=== PATIENT | female | born 1975 | race Caucasian/White ===

== ENCOUNTER 2018-06-21 08:07 | Day surgery (SDC) | payer OTHER ==
[2018-06-21] MEDS ORDERED: CEFAZOLIN/SWI 1gm 1 GM/10 ML SYR ONE (08:29)
[2018-06-21] MEDS ORDERED: SCOPOLAMINE HYDROBROMIDE PATCH TD ONE (08:29)
[2018-06-21] MEDS ORDERED: Ringers Lactate 1,000 ML IV ONE ×3 (08:29→08:32)
[2018-06-21 08:30] LABS: Specific Gravity 1.015 (1.005-1.030)
[2018-06-21] MEDS ORDERED: NS 0.9% VIAL 20 ML ONE (08:30)
[2018-06-21] MEDS ORDERED: CEFAZOLIN SODIUM 1 GM/VIAL ONE (08:30)
[2018-06-21] MEDS ORDERED: GENTAMICIN SULF 80 MG/2ML INJ ONE (08:31)
[2018-06-21] MEDS ORDERED: BACITRACIN 50000 UNIT VIAL ONE (08:31)
[2018-06-21] MEDS ORDERED: PROPOFOL 200 MG/20 ML VIAL IV ONE (08:34)
[2018-06-21] MEDS ORDERED: MIDAZOLAM HCL 2 MG/2 ML INJ ONE (08:35)
[2018-06-21] MEDS ORDERED: GLYCOPYRROLATE 0.2 MG/ML SYR ONE ×2 (08:35)
[2018-06-21] MEDS ORDERED: LIDOCAINE 2% MPF 5 ML VIAL ONE (08:36)
[2018-06-21] MEDS ORDERED: DEXAMETHASONE 10 MG/ML VIAL ONE (08:36)
[2018-06-21] MEDS ORDERED: ROCURONIUM 50 MG/5 ML VIAL IV ONE ×2 (08:36→09:38)
[2018-06-21] MEDS ORDERED: ONDANSETRON 4 MG/2 ML VIAL ONE ×2 (08:37→12:55)
[2018-06-21] MEDS ORDERED: FENTANYL CITR 250 MCG/5 ML ONE (08:48)
[2018-06-21] MEDS ORDERED: EPHEDRINE SULF 50 MG/ML VIAL ONE ×2 (09:56→11:43)
[2018-06-21] MEDS: Mastisol Adhesive Liq ONE ×2 (10:10→14:30)
[2018-06-21] MEDS ORDERED: NEOSTIGMINE 1 MG/ML -10 ML VIAL ONE (12:56)
[2018-06-21] MEDS ORDERED: FENTANYL CITR 100 MCG/2 ML ONE (13:23)
[2018-06-21] MEDS ORDERED: MORPHINE 10 MG/ML VIAL ONE (13:23)
[2018-06-21] MEDS ORDERED: Mastisol Adhesive Liq ONE (14:36)
[2018-06-21] MEDS ORDERED: KETOROLAC 30 MG/ML INJ ONE (15:12)
[2018-06-21] MEDS ORDERED: HYDROCODONE/APAP 10/325 TAB ONE (16:12)
[2018-06-21] MEDS ORDERED: ONDANSETRON 4 MG (ODT) TAB ONE (17:07)
--- NOTE | 2018-06-22 02:26 | OP ---
Surgeon: Aureliano Blakely MD Retanned Leather Roller: Olman. Preoperative Diagnosis: Breast descent. Postoperative Diagnosis: Breast descent. Procedure Performed: Breast lift. Anesthesia: General. Procedure In Detail: After satisfactory induction of general anesthesia, chest was prepped with Dura Prep. Dry sterile drapes applied in the usual manner. A 45 mm template was used to outline both are olas. Then transverse and curvilinear inferior incisions were made. The intervening skin was de-epi thelialized with a dermabrader or EpiCut. A transverse incision was made with a scalpel. Flap was t hinned to 1.2 cm thickness and were elevated towards the sternum, clavicle, and anterior axillary kel e. Both sides were done simultaneously. After this was done, the de-epithelialized tissue was forme d into a cone using 2-0 PDS. Straps were elevated at 12 o'clock, 1:30, and 3 o'clock position on the right side. Mirror image on the left. The straps were then woven in and out of pectoralis major mu scle, then back to the base of the cone, then back to the pectoral major muscle, then back to the bas e of the cone, tied themselves with 2-0 PDS. The 3 o'clock strap was sewn over sternum at the 3 o'cl ock position with 2-0 Ethibond. Both sides were done and then the patient was sat up. Site for the symmetry was then checked. Excess skin had to be excised laterally with dog ears and then a 10 CHELO wa s brought out of the axilla. Wound closed in layers with 3-0 Vicryl subcu, 3-0 PDS running subcuticu lar tied in the vertical meridian of the breast. The patient was sat up. Site for new nipple-areola r complex was marked out. Tissue cored out. Nipples delivered and sewn with interrupted 4-0 PDS fol lowed by 4-0 PDS running subcu. Dressings consisting of tincture of benzoin, Steri-Strips, 5 x 5's, fluffs, and Fortino wrap. Amount of tissue removed from the right breast was 74 g, the left was 48 g. JOSE MARTIN/MODL Voice ID: [id number] Report ID: [id number]
== END 2018-06-21 17:03 | disposition home or self-care (01) ==
LOC: OR 08:07
PROVIDERS: ATTEND Specialist
PROC: 0HSV0ZZ Reposition Bilateral Breast, Open Approach (ICD-10-PCS; principal; 2018-06-21 09:00)
DX: N64.81 Ptosis of breast (principal)
CPT/HCPCS: 81025; 88305; J0690; J1100; J1580; J2250; J2405; J2704; J2710; J3010